=== PATIENT | male | born 1995 | race African-American/Black ===

== ENCOUNTER 2019-01-23 00:25 | Emergency (ER) | payer SELFPAY ==
[~2019-01-23] VITALS: Ht 172.7 cm; Wt 80.0 kg
[2019-01-23 00:28] VITALS: BP 128/86
--- NOTE | 2019-01-23 01:08 | NUR ---
PT SLEEPING, VSS, ROUSABLE TO VOICE, STILL REFUSING TO ANSWER QUESTIONS
--- NOTE | 2019-01-23 01:29 | NUR ---
PT AWAKE AND WALKING AROUND UNIT, STATES HE DOES NOT WANT TO LEAVE YET, NO MEDICAL COMPLAINTS
== END 2019-01-23 01:43 | disposition home or self-care (01) ==
LOC: ED 01:38
DX: F10.120 Alcohol abuse with intoxication, uncomplicated (principal); F15.10 Other stimulant abuse, uncomplicated; Y90.9 Presence of alcohol in blood, level not specified
CPT/HCPCS: 99283